=== PATIENT | male | born 1950 | race African-American/Black ===

== ENCOUNTER 2024-04-23 10:41 | Emergency (ER) | payer MEDICARE ==
[~2024-04-23] VITALS: Ht 182.9 cm; Wt 84.0 kg
[2024-04-23 10:57] VITALS: O2SAT 100
[2024-04-23] MEDS ORDERED: CELE100C MT (12:43)
[2024-04-23 13:02] VITALS: BP 152/89; PULSE 63; RESP 18; TEMP 36.89184; O2SAT 99
== END 2024-04-23 13:04 | disposition home or self-care (01) ==
LOC: ER 10:41
DX: M25.512 Pain in left shoulder (principal)
CPT/HCPCS: 73030; 99283

== ENCOUNTER → 2024-05-17 | Outpatient (CLI) | payer MEDICARE ==
[~2024-05-17] MED LIST: CELE100C MT
== END | disposition home or self-care (01) ==
LOC: MRI 07:19
DX: S46.812A Strain of other muscles, fascia and tendons at shoulder and upper arm level, left arm, initial encounter (principal); M19.012 Primary osteoarthritis, left shoulder; X58.XXXA Exposure to other specified factors, initial encounter; Y93.89 Activity, other specified; Y92.89 Other specified places as the place of occurrence of the external cause; Y99.8 Other external cause status
CPT/HCPCS: 73221